=== PATIENT | male | born 1960 | race Caucasian/White ===

== ENCOUNTER 2020-05-28 11:24 | Inpatient (IN) ==
--- NOTE | 2020-05-28 11:56 | ERNOTE ---
Medical Problem HPI - Narrative Date of Service: 05/28/20 - General Chief Complaint: General Assessment Time Seen by Provider: 05/28/20 11:27 Source: patient Exam Limitations: no limitations - Immun/Allergies/Home Medications Immunizations: IMMUNIZATION HX Immunizations Up to Date Yes History of Influenza Vaccine No Hx Pneumococcal Vaccination No Allergies/Adverse Reactions: Allergies No Known Allergies Allergy (Verified 05/28/20 11:34) Home Medications: HOME MEDICATIONS pantoprazole 40 mg tablet,delayed release 40 mg PO DAILY #30 tab 05/27/20 [Last Taken Unknown] - Pain Score Pain Score #1 Pain Score: 0 - History of Present History Narrative: The patient is a 60 year old male who presents for abdominal distention which has been present for 10 days. There are associated symptoms of jaundice. The patient denies pain. There are no alleviating factors. There a re no aggravating factors. Previous treatments have included: none. The past medical history includes: alcohol dependence, GERD and hiatal hernia. The social history is positive for alcohol dependence and negative for tobacco use. The patient has had no known ill contacts. Patient states he noticed increased abdominal distention 10 days ago and his mother recognized that his skin appeared yellow. Patient states he has been having normal bowel movements without blood contained. Denies nausea, vomiting or pain to abdomen. Patient denies alcohol use. Patient states he was previously drinking 12-15 beers daily until 3 weeks ago. Review of Systems - Review of Systems Constitutional: Present: no symptoms reported. Absent: fever, chills, fatigue EYE: Present: no symptoms reported ENT: Present: no symptoms reported. Absent: ear pain, nasal drainage, sore throat Respiratory: Present: no symptoms reported. Absent: shortness of breath, cough Cardiology: Present: no symptoms reported. Absent: chest pain Gastrointestinal/Abdominal: Present: other - abdominal distention. Absent: nausea, vomiting, diarrhea, eating less, drinking less Genitourinary: Present: no symptoms reported. Absent: dysuria, decreased urinary output Musculoskeletal: Present: no symptoms reported. Absent: back pain Skin: Present: change in color. Absent: rash Neurological: Present: no symptoms reported. Absent: dizziness/light-headedness All Other Systems: All systems neg except as marked Medical History (Last Reviewed 05/28/20 @ 11:49 by TONY Raines) Major depression (Chronic) Alcohol dependence (Chronic) Depression Hiatal hernia Hypertension, essential, benign Insomnia due to mental disorder Intermittent explosive disorder Moderate episode of recurrent major depressive disorder Osteoarthrosis Arthritis Chronic pain due to trauma DDD (degenerative disc disease), lumbosacral Low back pain Midline low back pain with sciatica Clavicle fracture Fracture of metacarpal, closed Surgical History: Surgical History (Last Reviewed 05/28/20 @ 11:49 by TONY Raines) History of appendectomy History of inguinal hernia repair History of tonsillectomy Family History: Family History (Last Reviewed 05/28/20 @ 11:49 by TONY Raines) Father CAD (coronary artery disease) Brain cancer Mother Thyroid disease Breast cancer Sister Thyroid disease Social History: (Last Reviewed 05/28/20 @ 11:49 by TONY Raines) Social History: Marital status: Single household members: none current occupational status: unemployed Service: Yes Tobacco: Smoking Status: Never smoker Alcohol: alcohol intake: former Alcohol type: beer alcohol intake frequency: 3 or more drinks per day Substance Use: substance use type: does not use Dietary Habits: caffeine: No Physical Exam - Physical Exam General Appearance: Present: wd/wn, alert, mild distress Head Exam: Present: normal inspection, no evidence of injury Eye Exam: PERRL: bilateral, EOMI: bilateral, Scleral icterus: bilateral Ears, Nose, Throat: Present: normal ENT inspection, normal pharynx Neck: Present: normal inspection Respiratory: Present: no respiratory distress, normal breath sounds, no accessory muscle use, lungs clear Cardiovascular/Chest: Present: no murmur, tachycardia Gastrointestinal/Abdominal: Present: nontender, soft, abnormal bowel sounds - hypoactive, distended. Absent: guarding, mass Neurological Exam: Present: alert, oriented, normal mood/affect, no motor/sensory deficits Skin Exam: Present: warm/dry, jaundice Progress - Date and Time Seen: Date and Time: 05/28/20 14:45 Case was discussed with , does not feel that patient is surgical. Case was reviewed with , feels since new diagnosis along with abnormal labs and need for additional ascites testing. 05/28/20 14:50 [facility] consulted for transfer for higher level of care and hepatology. 05/28/20 15:00 Awaiting return call from [facility] ER for transfer. Discussed plan of care with patient and verbalized understanding. 05/28/20 15:06 Spoke with [facility], and feels that patient could be managed locally with consult for hepatology for management and then transfer admission when bed available. Will discuss this plan of care with for acceptance. 05/28/20 15:27 Discussed plan with and would like hepatology consult to be completed in ER to ensure plan of care available for admission at [facility] then will proceed once plan established. [facility] contacted to consult with hepatology. 05/28/20 15:55 Spoke with hepatology [facility], , will be available for consult. Recommending addition of iron studies, mag, phosphate, fluid restriction of 1500 mils per day, no diuretics, high-protein diet, DVT prophylaxis as well as paracentesis for fluid studies of protein, albumin, cell count and culture. This plan was discussed with Dr. Torres and agreed to admit patient and will follow-up with hepatology when results of testing are available. Additional testing was added to blood from ER and remain pending upon admission this was disclosed to Dr. Torres. Spoke with Dr. Oliveros and patient will be scheduled with Dr. Medina tomorrow for paracentesis for studies. Will place patient on compression stockings for DVT prophylaxis due to pending paracentesis plan. Reviewed UA results with Dr. Layne and instructed to withhold antibiotic treatment at this time until cultures and other specimens are available. - Results and Orders Patient's Lab Results:: I have reviewed the patient's lab results. Results and Orders: Laboratory Tests 05/28/20 05/28/20 05/28/20 12:20 12:20 12:20 WBC 10.1 RBC 3.65 L Hgb 13.0 L Hct 36.7 L Plt Count 139 L Neutrophils % 81.1 H INR (Anticoag Therapy) 1.97 H Plasma Sodium 117 L* Potassium 2.9 L Chloride 84 L Carbon Dioxide 23.6 L Anion Gap 12.3 BUN 9 Creatinine 0.99 Est GFR (Non-Af Amer) 82 Random Glucose 125 H Total Bilirubin 17.2 H Direct Bilirubin AST 194 H ALT 84 H Alkaline Phosphatase 121 Ammonia Total Protein 8.9 H Albumin 1.8 L Amylase 55 Lipase 218 05/28/20 05/28/20 12:20 12:20 WBC RBC Hgb Hct Plt Count Neutrophils % INR (Anticoag Therapy) Plasma Sodium Potassium Chloride Carbon Dioxide Anion Gap BUN Creatinine Est GFR (Non-Af Amer) Random Glucose Total Bilirubin Direct Bilirubin 11.7 H AST ALT Alkaline Phosphatase Ammonia Less than 17.0 Total Protein Albumin Amylase Lipase Laboratory Tests 05/28/20 14:17 Urine Color Brown Urine Appearance Slightly cloudy Urine pH 6.5 Ur Specific [place] 1.025 Urine Protein 30 H Urine Glucose (UA) 100 H Urine Ketones 5 Urine Blood 5 H Urine Nitrate Positive H Urine Bilirubin 6 H Urine Ictotest Positive H Prot Sulfosalicylic Acd 2+ H Urine Urobilinogen >=8.0 H Ur Leukocyte Esterase Negative Urine RBC None seen Urine WBC 5-10 H Ur Epithelial Cells None seen Amorphous Sediment Few - 1+ Urine Bacteria 1+ H - Vital Signs Patient's Vital Signs:: I have reviewed the patient's vital signs. Vital Signs: Vital Signs 05/28/20 11:28 Temperature 36.5 C Pulse Rate 113 H Respiratory Rate 16 Blood Pressure 141/98 H O2 Sat by Pulse Oximetry 98 - EKG EKG #1 EKG: NSR, other - PAC, no acute ischemic changes noted EKG read: Reviewed by me - CT/Ultrasound CT/Ultrasound Narrative: IMPRESSION: 1. FINDINGS CONSISTENT WITH HEPATIC CIRRHOSIS. NO HEPATIC MASSES. 2. ASSOCIATED MODERATE ASCITES. 3. ASSOCIATED MODERATE TO SEVERE SPLENOMEGALY. 4. THE GALLBLADDER IS DISTENDED WITH GALLBLADDER SLUDGE AND DEBRIS. NO EVIDENCE FOR ACUTE CHOLECYSTITIS HOWEVER. Electronically signed by Clayton Oliveros D.O.. - Progress/Reassessment Chief Complaint: General Assessment Departure Clinical Impression: Alcoholic hepatitis with ascites, Hyponatremia, Hypokalemia - Departure Disposition: Still a patient Condition: Fair
[2020-05-28 12:28] LABS: Hematocrit 36.7 % (42.0-52.0); Mean Cell Volume 100.5 fl (78-100); Mean Corpuscular Hemoglobin 35.6 pg (27-31); Mean Corpuscular Hgb Conc 35.4 g/dl (32-36); Mean Platelet Volume 10.4 fl (8-11.3); Neutrophil # 8.2 K/mm3 (1.3-6.0); Neutrophil % 81.1 % (42-75.0); Platelet Count 139 K/mm3 (150-450); Red Blood Count 3.65 M/mm3 (4.7-6.0); Red Cell Distribution Width 14.2 % (11.5-14.0); White Blood Count 10.1 K/mm3 (4.0-10.5)
[2020-05-28 12:40] LABS: Albumin * 1.8 gm/dl (3.4-5.0); Anion Gap 12.3 mmol/L (6.8-13.8); BUN/Creatinine Ratio 9.1 (9.0-21.6); Bilirubin, Total 17.2 mg/dL (0.0-1.1); Ca. Corrected For Albumin 9.9 mg/dL (8.4-10.2); Calcium * 8.5 mg/dL (7.9-10.9); Carbon Dioxide 23.6 mmol/L (24-32.6); Potassium 2.9 mmol/L (3.4-4.6); Total Protein 8.9 gm/dL (6.2-8.2)
[2020-05-28 13:09] LABS: INR 1.97 INR (0.92-1.08)
[2020-05-28] MEDS: NORMAL SALINE 1,000 ML IV PRN ×3 (13:19→17:43)
[2020-05-28 14:28] LABS: Urine Bilirubin 6 mg/dl (NEGATIVE); Urine Ketone 5 mg/dL (NEGATIVE); Urine Protein 30 mg/dL (NEGATIVE); Urine Specific Gravity 1.025 SP.GR. (1.005-1.030); Urine Urobilinogen >=8.0 EU/dl (NORMAL); Urine pH 6.5 pH (5.0-7.0)
[2020-05-28 14:44] LABS: Urine Appearance Slightly Cloudy (CLEAR); Urine Bacteria 1+; Urine Blood 5 /ul (NEGATIVE); Urine Color Brown; Urine Nitrite Positive (NEGATIVE); Urine RBC None Seen /hpf (0-5)
[2020-05-28 14:45] LABS: Urine Amorphous Sediment Few - 1+ (NONE-FEW)
[2020-05-28] MEDS ORDERED: POTASSIUM CHLORIDE IN WATER 100 ML IV ONE ×2 (14:59→17:06)
[2020-05-28] MEDS ORDERED: NORMAL SALINE 1,000 ML IV PRN (14:59)
[2020-05-28 16:07] LABS: Iron 110 mcg/dL (35-120); Transferrin Sat. (% Sat.) 96 % (15-55)
[2020-05-28 16:37] LABS: Cocaine Ur Negative (NEGATIVE); Urine Barbiturate Negative (NEGATIVE); Urine Benzodiazepines Negative (NEGATIVE); Urine Opiates Negative (NEGATIVE); Urine PCP Negative (NEGATIVE); Urine THC Negative (NEGATIVE)
[2020-05-28 16:42] LABS: Magnesium 1.6 mg/dL (1.2-2.8); Phosphorus 3.6 mg/dL (2.2-4.2)
[2020-05-28 16:54] LABS: Ferritin 1728 ng/mL (26-388)
[2020-05-28 18:33] LABS: Anion Gap 8.6 mmol/L (6.8-13.8); BUN/Creatinine Ratio 8.9 (9.0-21.6); Calcium * 8.3 mg/dL (7.9-10.9); Carbon Dioxide 28.6 mmol/L (24-32.6); Estimated Creat Clear 113.2; Potassium 3.2 mmol/L (3.4-4.6)
--- NOTE | 2020-05-28 18:50 | HP ---
Chief Complaint - Chief Complaint Date of Service: 05/28/20 Time of Service: 18:25 Chief Complaint: Abdominal swelling History of Present Illness: This is a 60 y/o man who noticed progressively increasing abdominal swelling for about 3 weeks. It is uncomfortable, but not painful. He has never had it before. There have been no fever, chills or sweats. His mother noticed that his skin was yellow, and he noticed that his urine was dark. He came to our ER today where among other things, he was found to have a bilirubin of 17.2, a low sodium, a low potassium and mild anemia. His physical exam showed jaundice and moderate ascites. His breath is unpleasant, as one might expect with liver failure. He is in no acute distress. His vitals are unremarkable. He normally takes pantoprazole, without which he develops anorexia and upper abdominal discomfort. He has taken this for a long time. In the ER, CT of the abdomen showed the ascites, plus cirrhosis of the liver and a large spleen. He doesn't have much of an appetite tonight. He told me until 2 weeks ago, he was drinking 12-15 beers daily, but the underlying sense I have of it is that he has been drinking somewhat more. In the more distant past, his beer drinking was more vigourous. He has had no alcohol for three weeks. His MELD score today is 31. Medical History (Last Reviewed 05/28/20 @ 18:33 by Sergei Liang MD) Major depression (Chronic) Alcohol dependence (Chronic) Depression Hiatal hernia Hypertension, essential, benign Insomnia due to mental disorder Intermittent explosive disorder Moderate episode of recurrent major depressive disorder Osteoarthrosis Arthritis Chronic pain due to trauma DDD (degenerative disc disease), lumbosacral Low back pain Midline low back pain with sciatica Clavicle fracture Fracture of metacarpal, closed Surgical History: Surgical History (Last Reviewed 05/28/20 @ 18:33 by Sergei Liang MD) History of appendectomy History of inguinal hernia repair History of tonsillectomy Family History: Family History (Last Reviewed 05/28/20 @ 18:33 by Sergei Liang MD) Father Brain cancer CAD (coronary artery disease) Mother Breast cancer Thyroid disease Sister Thyroid disease Social History: (Last Reviewed 05/28/20 @ 18:34 by Sergei Liang MD) Social History: Marital status: Single household members: none current occupational status: unemployed Service: Yes Tobacco: Smoking Status: Never smoker Alcohol: alcohol intake: former Alcohol type: beer alcohol intake frequency: 3 or more drinks per day Substance Use: substance use type: does not use Dietary Habits: caffeine: No Review Of Systems (GEN) - Review of Systems Generalized/Overall Review: Present: Malaise, Fatigue EENTM: Present: No Symptoms Reported Respiratory: Present: No Symptoms Reported Cardiac: Present: No Symptoms Reported Abdominal: Present: Other - distension and discomfort. Absent: Nausea, Vomiting, Constipation, Diarrhea Genitourinary: Present: No Symptoms Reported, Other - dark urine Musculoskeletal: Present: No Symptoms Reported Neurological: Present: Other - insomnia. Absent: Tremors Skin: Present: Change in Color. Absent: Bruising Endocrine: Present: Intolerance to Cold, Intolerance to Heat Misc: All systems neg except as marked Immunizations: IMMUNIZATION HX Immunizations Up to Date Yes History of Influenza Vaccine No Hx Pneumococcal Vaccination No Allergies/Adverse Reactions: Allergies Allergy/AdvReac Type Severity Reaction Status Date / Time No Known Allergies Allergy Verified 05/28/20 11:34 Home Medications: HOME MEDICATIONS pantoprazole 40 mg tablet,delayed release 40 mg PO DAILY #30 tab 05/27/20 [Last Taken Unknown] Exam - Exam Vital Signs: Vital Signs - Last Taken Temp 36.7 C 05/28/20 16:53 Pulse 86 05/28/20 16:53 Resp 10 L 05/28/20 16:53 BP 144/100 H 05/28/20 16:53 Pulse Ox 99 05/28/20 16:53 Constitutional: Present: Alert, Oriented x3, Cooperative, Well developed, No distress, Looks Older than stated age ENT Exam: Present: normal ENT inspection, hearing grossly normal Eye Exam: bilateral eye: normal inspection, PERRL, EOMI, scleral icterus Neck: Present: normal inspection. Absent: lymphadenopathy (R), lymphadenopathy (L), thyromegaly Back Exam: Present: normal inspection Breasts: Present: Other - male Respiratory: Present: lungs clear, no respiratory distress Cardiovascular/Chest: Present: regular rate, rhythm, no gallop, no JVD, no mur mur, edema - bilateral lower extremities, mild Peripheral Pulses: carotid (R): 1+, carotid (L): 1+ Abdomen: Present: Normal bowel sounds, soft, nontender, no masses, other - large spleen, distended /Rectal: Present: Exam deferred Extremity: Present: normal range of motion, non-tender, normal capillary refill Skin Exam: Present: no cyanosis, cool/dry, jaundice Lymphatic: Present: no adenopathy Neurologic: Present: normal mood/affect, oriented x 3. Absent: abnormal gait Appearance: Present: appropriate appearance, appropriate insight, neat Eye contact: Present: cooperative, good eye contact, normal speech Thoughts: Present: normal thought pattern Diagnostic Studies: Abnormal Lab Results 05/28/20 05/28/20 05/28/20 Range/Units 12:20 12:20 12:20 RBC 3.65 L (4.7-6.0) M/mm3 Hgb 13.0 L (13.5-18.0) gm/dL Hct 36.7 L (42.0-52.0) % MCV 100.5 H (78-100) fl MCH 35.6 H (27-31) pg RDW 14.2 H (11.5-14.0) % Plt Count 139 L (150-450) K/mm3 Immature Gran # (Auto) 0.04 H (0.000-0.0310) K/mm3 Neutrophils % 81.1 H (42-75.0) % Lymphocytes % 9.5 L (20-51) % Neutrophils # 8.2 H (1.3-6.0) K/mm3 Lymphocytes # 0.95 L (1.5-3.5) k/mm3 PT 19.0 H (9.1-10.7) Seconds INR (Anticoag Therapy) 1.97 H (0.92-1.08) INR PTT (Aries) 38.0 H (24-32) Seconds Sodium 117 L* D (132-142) mmol/L Plasma Sodium 117 L* (130-142) mmol/L Potassium 2.9 L (3.4-4.6) mmol/L Chloride 84 L (97-106) mmol/L Carbon Dioxide 23.6 L (24-32.6) mmol/L Random Glucose 125 H (70-110) mg/dL TIBC (260-445) mcg/dL Transferrin % Sat (15-55) % Ferritin (26-388) ng/mL Total Bilirubin 17.2 H (0.0-1.1) mg/dL Direct Bilirubin (0.0-0.3) mg/dL AST 194 H (0-48) U/L ALT 84 H (19-67) U/L Total Protein 8.9 H (6.2-8.2) gm/dL Albumin 1.8 L (3.4-5.0) gm/dl Urine Protein (NEGATIVE) mg/dL Urine Glucose (UA) (NEGATIVE) mg/dL Urine Blood (NEGATIVE) /ul Urine Nitrate (NEGATIVE) Urine Bilirubin (NEGATIVE) mg/dl Urine Ictotest (NEGATIVE) Prot Sulfosalicylic Acd (0) mg/dL Urine Urobilinogen (NORMAL) EU/dl Urine WBC (0-5) /hpf Urine Bacteria (NONE) 05/28/20 05/28/20 05/28/20 Range/Units 12:20 12:20 12:20 RBC (4.7-6.0) M/mm3 Hgb (13.5-18.0) gm/dL Hct (42.0-52.0) % MCV (78-100) fl MCH (27-31) pg RDW (11.5-14.0) % Plt Count (150-450) K/mm3 Immature Gran # (Auto) (0.000-0.0310) K/mm3 Neutrophils % (42-75.0) % Lymphocytes % (20-51) % Neutrophils # (1.3-6.0) K/mm3 Lymphocytes # (1.5-3.5) k/mm3 PT (9.1-10.7) Seconds INR (Anticoag Therapy) (0.92-1.08) INR PTT (Aries) (24-32) Seconds Sodium (132-142) mmol/L Plasma Sodium (130-142) mmol/L Potassium (3.4-4.6) mmol/L Chloride (97-106) mmol/L Carbon Dioxide (24-32.6) mmol/L Random Glucose (70-110) mg/dL TIBC 114 L (260-445) mcg/dL Transferrin % Sat 96 H (15-55) % Ferritin 1728 H (26-388) ng/mL Total Bilirubin (0.0-1.1) mg/dL Direct Bilirubin 11.7 H (0.0-0.3) mg/dL AST (0-48) U/L ALT (19-67) U/L Total Protein (6.2-8.2) gm/dL Albumin (3.4-5.0) gm/dl Urine Protein (NEGATIVE) mg/dL Urine Glucose (UA) (NEGATIVE) mg/dL Urine Blood (NEGATIVE) /ul Urine Nitrate (NEGATIVE) Urine Bilirubin (NEGATIVE) mg/dl Urine Ictotest (NEGATIVE) Prot Sulfosalicylic Acd (0) mg/dL Urine Urobilinogen (NORMAL) EU/dl Urine WBC (0-5) /hpf Urine Bacteria (NONE) 05/28/20 Range/Units 14:17 RBC (4.7-6.0) M/mm3 Hgb (13.5-18.0) gm/dL Hct (42.0-52.0) % MCV (78-100) fl MCH (27-31) pg RDW (11.5-14.0) % Plt Count (150-450) K/mm3 Immature Gran # (Auto) (0.000-0.0310) K/mm3 Neutrophils % (42-75.0) % Lymphocytes % (20-51) % Neutrophils # (1.3-6.0) K/mm3 Lymphocytes # (1.5-3.5) k/mm3 PT (9.1-10.7) Seconds INR (Anticoag Therapy) (0.92-1.08) INR PTT ([place]) (24-32) Seconds Sodium (132-142) mmol/L Plasma Sodium (130-142) mmol/L Potassium (3.4-4.6) mmol/L Chloride (97-106) mmol/L Carbon Dioxide (24-32.6) mmol/L Random Glucose (70-110) mg/dL TIBC (260-445) mcg/dL Transferrin % Sat (15-55) % Ferritin (26-388) ng/mL Total Bilirubin (0.0-1.1) mg/dL Direct Bilirubin (0.0-0.3) mg/dL AST (0-48) U/L ALT (19-67) U/L Total Protein (6.2-8.2) gm/dL Albumin (3.4-5.0) gm/dl Urine Protein 30 H (NEGATIVE) mg/dL Urine Glucose (UA) 100 H (NEGATIVE) mg/dL Urine Blood 5 H (NEGATIVE) /ul Urine Nitrate Positive H (NEGATIVE) Urine Bilirubin 6 H (NEGATIVE) mg/dl Urine Ictotest Positive H (NEGATIVE) Prot Sulfosalicylic Acd 2+ H (0) mg/dL Urine Urobilinogen >=8.0 H (NORMAL) EU/dl Urine WBC 5-10 H (0-5) /hpf Urine Bacteria 1+ H (NONE) Laboratory Results WBC 10.1 K/mm3 (4.0-10.5) 05/28/20 12:20 RBC 3.65 M/mm3 (4.7-6.0) L 05/28/20 12:20 Hgb 13.0 gm/dL (13.5-18.0) L 05/28/20 12:20 Hct 36.7 % (42.0-52.0) L 05/28/20 12:20 MCV 100.5 fl (78-100) H 05/28/20 12:20 MCH 35.6 pg (27-31) H 05/28/20 12:20 MCHC 35.4 g/dl (32-36) 05/28/20 12:20 RDW 14.2 % (11.5-14.0) H 05/28/20 12:20 Plt Count 139 K/mm3 (150-450) L 05/28/20 12:20 MPV 10.4 fl (8-11.3) 05/28/20 12:20 Immature Gran % (Auto) 0.40 % (0.001-0.429) 05/28/20 12: Immature Gran # (Auto) 0.04 K/mm3 (0.000-0.0310) H 05/28/20 12:20 Neutrophils % 81.1 % (42-75.0) H 05/28/20 12:20 Lymphocytes % 9.5 % (20-51) L 05/28/20 12:20 Monocytes % 7.8 % (0.0-9) 05/28/20 12:20 Eosinophils % 0.8 % (0.0-3.0) 05/28/20 12:20 Basophils % 0.4 % (0.0-1.0) 05/28/20 12:20 Nucleated RBC % 0.0 k/mm3 (0-1) 05/28/20 12:20 Neutrophils # 8.2 K/mm3 (1.3-6.0) H 05/28/20 12:20 Lymphocytes # 0.95 k/mm3 (1.5-3.5) L 05/28/20 12:20 Monocytes # 0.8 k/mm3 (0.0-1.0) 05/28/20 12:20 Eosinophils # 0.1 k/mm3 (0.0-0.7) 05/28/20 12:20 Absolute Basophils 0.0 k/mm3 (0.0-0.1) 05/28/20 12:20 PT 19.0 Seconds (9.1-10.7) H 05/28/20 12:20 INR (Anticoag Therapy) 1.97 INR (0.92-1.08) H 05/28/20 12:20 PTT (Aries) 38.0 Seconds (24-32) H 05/28/20 12:20 Sodium 117 mmol/L (132-142) L* D 05/28/20 12:20 Plasma Sodium 117 mmol/L (130-142) L* 05/28/20 12:20 Potassium 2.9 mmol/L (3.4-4.6) L 05/28/20 12:20 Chloride 84 mmol/L (97-106) L 05/28/20 12:20 Carbon Dioxide 23.6 mmol/L (24-32.6) L 05/28/20 12:20 Anion Gap 12.3 mmol/L (6.8-13.8) 05/28/20 12:20 BUN 9 mg/dL (6-23) 05/28/20 12:20 Creatinine 0.99 mg/dL (0.4-1.4) 05/28/20 12:20 Est GFR (Non-Af Amer) 82 mL/min (60-130) 05/28/20 12:20 BUN/Creatinine Ratio 9.1 (9.0-21.6) 05/28/20 12:20 Random Glucose 125 mg/dL (70-110) H 05/28/20 12:20 Calcium 8.5 mg/dL (7.9-10.9) 05/28/20 12:20 Calcium Adj for Albumin 9.9 mg/dL (8.4-10.2) 05/28/20 12:20 Phosphorus 3.6 mg/dL (2.2-4.2) 05/28/20 12:20 Magnesium 1.6 mg/dL (1.2-2.8) 05/28/20 12:20 Iron 110 mcg/dL (35-120) 05/28/20 12:20 TIBC 114 mcg/dL (260-445) L 05/28/20 12:20 Transferrin % Sat 96 % (15-55) H 05/28/20 12:20 Ferritin 1728 ng/mL (26-388) H 05/28/20 12:20 Total Bilirubin 17.2 mg/dL (0.0-1.1) H 05/28/20 12:20 Direct Bilirubin 11.7 mg/dL (0.0-0.3) H 05/28/20 12:20 AST 194 U/L (0-48) H 05/28/20 12:20 ALT 84 U/L (19-67) H 05/28/20 12:20 Alkaline Phosphatase 121 U/L (50-170) 05/28/20 12:20 Ammonia Less than 17.0 mcmol/L (11-35) 05/28/20 12:20 Total Protein 8.9 gm/dL (6.2-8.2) H 05/28/20 12:20 Albumin 1.8 gm/dl (3.4-5.0) L 05/28/20 12:20 Amylase 55 U/L (25-115) 05/28/20 12:20 Lipase 218 U/L (73-393) 05/28/20 12:20 Urine Color Brown 05/28/20 14:17 Urine Appearance Slightly cloudy (CLEAR) 05/28/20 14:17 Urine pH 6.5 pH (5.0-7.0) 05/28/20 14:17 Ur Specific [place] 1.025 SP.GR. (1.005-1.030) 05/28/20 14:17 Urine Protein 30 mg/dL (NEGATIVE) H 05/28/20 14:17 Urine Glucose (UA) 100 mg/dL (NEGATIVE) H 05/28/20 14:17 Urine Ketones 5 mg/dL (NEGATIVE) 05/28/20 14:17 Urine Blood 5 /ul (NEGATIVE) H 05/28/20 14:17 Urine Nitrate Positive (NEGATIVE) H 05/28/20 14:17 Urine Bilirubin 6 mg/dl (NEGATIVE) H 05/28/20 14:17 Urine Ictotest Positive (NEGATIVE) H 05/28/20 14:17 Prot Sulfosalicylic Acd 2+ mg/dL (0) H 05/28/20 14:17 Urine Urobilinogen >=8.0 EU/dl (NORMAL) H 05/28/20 14:17 Ur Leukocyte Esterase Negative /ul (NEGATIVE) 05/28/20 14:17 Urine RBC None seen /hpf (0-5) 05/28/20 14:17 Urine WBC 5-10 /hpf (0-5) H 05/28/20 14:17 Ur Epithelial Cells None seen /hpf (0-5) 05/28/20 14:17 Amorphous Sediment Few - 1+ (NONE-FEW) 05/28/20 14:17 Urine Bacteria 1+ (NONE) H 05/28/20 14:17 Urine Culture Comments Culture to follow 05/28/20 14:17 Urine Opiates Screen Negative (NEGATIVE) 05/28/20 14:17 Barbiturate Screen Negative (NEGATIVE) 05/28/20 14:17 Ur Phencyclidine Scrn Negative (NEGATIVE) 05/28/20 14:17 Urine Amphetamine Negative (NEGATIVE) 05/28/20 14:17 U Benzodiazepines Scrn Negative (NEGATIVE) 05/28/20 14:17 Urine Cocaine Screen Negative (NEGATIVE) 05/28/20 14:17 Urine Marijuana (THC) Negative (NEGATIVE) 05/28/20 14:17 Ethyl Alcohol Less than 3.0 mg/dL (0.0-10.0) 05/28/20 12:20 Hgb is borderline low. Macrocytosis. Minimally low platelet count. Somewhat elevated INR. Sodium and potassium both low. Serum albumin low. Bilirubin elevated. Liver enzymes slightly elevated, AST being greater than ALT. Urine is most significant for dark color. The ER provider spoke with the [facility] liver person this afternoon by phone about possible transfer. They were full at the time and couldn't accept him. They DID provide treatment recommendations which we will follow. (Then, [facility] the [facility] this note[facility] to say that things had opened up and they could accept him tomorrow)/ We were planning on paracentesis tomorrow, but that will now most likely be done in [place]. Assessment/Plan - Assessment/Plan (1) Alcoholic cirrhosis of liver with ascites Assessment: Has now begun to decompensate. MELD score at time of admission is 31. We will provide good nutrition, monitor, and strongly advise strict alcohol avoidance. We will most likely transfer him to the [facility] tomorrow. Problem: Chronic (2) Alcohol dependence Assessment: Quit alcohol three weeks ago. He has used for decades. Says he will never use again. Problem: Chronic Qualifiers: (3) Splenomegaly Problem: Chronic (4) Elevated INR Problem: Chronic (5) Jaundice Problem: Chronic (6) Hypoalbuminemia Problem: Chronic (7) Hyponatremia Assessment: we will restrict fluids. also in the management plan for his ascites. we will give low dose NS in his IV and monitor electrolytes. Problem: Acute (8) Hypokalemia Assessment: We will continue with IV potassium for now and monitor. Problem: Acute
[2020-05-29 06:34] LABS: Hematocrit 30.6 % (42.0-52.0); Hemoglobin 10.9 gm/dL (13.5-18.0); Mean Cell Volume 100.7 fl (78-100); Mean Corpuscular Hemoglobin 35.9 pg (27-31); Mean Corpuscular Hgb Conc 35.6 g/dl (32-36); Mean Platelet Volume 9.5 fl (8-11.3); Neutrophil # 3.9 K/mm3 (1.3-6.0); Neutrophil % 71.2 % (42-75.0); Platelet Count 103 K/mm3 (150-450); Red Blood Count 3.04 M/mm3 (4.7-6.0); White Blood Count 5.4 K/mm3 (4.0-10.5)
[2020-05-29 06:51] LABS: Albumin * 1.5 gm/dl (3.4-5.0); BUN/Creatinine Ratio 9.4 (9.0-21.6); Ca. Corrected For Albumin 9.7 mg/dL (8.4-10.2); Carbon Dioxide 27.8 mmol/L (24-32.6); Potassium 2.8 mmol/L (3.4-4.6); Total Protein 7.3 gm/dL (6.2-8.2)
[2020-05-29] MEDS: PANTOPRAZOLE SODIUM 40 MG TABLET.EC PO SCH (07:15)
--- NOTE | 2020-05-29 07:31 | DS ---
Transfer Discharge Summary - Diagnosis(s)/Problems (1) Alcoholic cirrhosis of liver with ascites Problem: Chronic (2) Alcohol dependence Problem: Chronic (3) Splenomegaly Problem: Chronic (4) Elevated INR Problem: Chronic (5) Jaundice Problem: Chronic (6) Hypoalbuminemia Problem: Chronic (7) Hyponatremia Problem: Acute (8) Hypokalemia Problem: Resolved (9) Thrombocytopenia Problem: Acute - Course Description of Stay: This is a 60 y/o man who had noticed progressively increasing abdominal swelling for about 3 weeks. He abdominal discomfort has responded well to oxycodone. LLQ bothers him the most, improved by rolling onto his right side. We have avoided acetaminophen and NSAIDs because of his cirrohsis. There have still been no fever, chills or sweats. His urine remains dark. His musculoskeletal cramps have improved. He came to our ER 2 days ago where among other things, he was found to have a bilirubin of 17.2, a low sodium, a low potassium, low albumin, somewhat elevated INR and mild anemia. His MELD score was 31. His physical exam still shows jaundice and moderate ascites. His breath is unpleasant. He is in no acute distress. His vitals are stable. His sodium, bilirubin and hgb are stable. His platelet count is decreasing, related to his cirrhosis. we will continue to monitor. His potassium is normal. we will decrease his oral dose. His INR is a little better, but not low enough today to do paracentesis. We will give Vit K again today and recheck tomorrow. His sodium remains low in spite of fluid restriction, so we will add low dose 3% NaCl and monitor. In the ER, CT of the abdomen showed ascites, plus cirrhosis of the liver and a large spleen. His appetite has improved, but still not great [facility] still has no bed for him, so we arranged transfer to Dr. Kobe Phillips in [place]. Consultation Done:: Phone consult [facility] when he was in ER Procedures Performed: none - Results and Findings Results and Findings: Laboratory Results - last 24 hr 05/28/20 05/28/20 05/28/20 12:20 12:20 12:20 WBC 10.1 RBC 3.65 L Hgb 13.0 L Hct 36.7 L MCV 100.5 H MCH 35.6 H MCHC 35.4 RDW 14.2 H Plt Count 139 L MPV 10.4 Immature Gran % (Auto) 0.40 Immature Gran # (Auto) 0.04 H Neutrophils % 81.1 H Lymphocytes % 9.5 L Monocytes % 7.8 Eosinophils % 0.8 Basophils % 0.4 Nucleated RBC % 0.0 Neutrophils # 8.2 H Lymphocytes # 0.95 L Monocytes # 0.8 Eosinophils # 0.1 Absolute Basophils 0.0 PT 19.0 H INR (Anticoag Therapy) 1.97 H PTT ([place]) 38.0 H Sodium 117 L* D Plasma Sodium 117 L* Potassium 2.9 L Chloride 84 L Carbon Dioxide 23.6 L Anion Gap 12.3 BUN 9 Creatinine 0.99 Est GFR (Non-Af Amer) 82 BUN/Creatinine Ratio 9.1 Random Glucose 125 H Calcium 8.5 Calcium Adj for Albumin 9.9 Phosphorus Magnesium Iron TIBC Transferrin % Sat Ferritin Total Bilirubin 17.2 H Direct Bilirubin AST 194 H ALT 84 H Alkaline Phosphatase 121 Ammonia Total Protein 8.9 H Albumin 1.8 L Amylase 55 Lipase 218 Urine Color Urine Appearance Urine pH Ur Specific [place] Urine Protein Urine Glucose (UA) Urine Ketones Urine Blood Urine Nitrate Urine Bilirubin Urine Ictotest Prot Sulfosalicylic Acd Urine Urobilinogen Ur Leukocyte Esterase Urine RBC Urine WBC Ur Epithelial Cells Amorphous Sediment Urine Bacteria Urine Culture Comments Urine Opiates Screen Barbiturate Screen Ur Phencyclidine Scrn Urine Amphetamine U Benzodiazepines Scrn Urine Cocaine Screen Urine Marijuana (THC) Ethyl Alcohol 05/28/20 05/28/20 05/28/20 12:20 12:20 12:20 WBC RBC Hgb Hct MCV MCH MCHC RDW Plt Count MPV Immature Gran % (Auto) Immature Gran # (Auto) Neutrophils % Lymphocytes % Monocytes % Eosinophils % Basophils % Nucleated RBC % Neutrophils # Lymphocytes # Monocytes # Eosinophils # Absolute Basophils PT INR (Anticoag Therapy) PTT ([place]) Sodium Plasma Sodium Potassium Chloride Carbon Dioxide Anion Gap BUN Creatinine Est GFR (Non-Af Amer) BUN/Creatinine Ratio Random Glucose Calcium Calcium Adj for Albumin Phosphorus 3.6 Magnesium 1.6 Iron TIBC Transferrin % Sat Ferritin 1728 H Total Bilirubin Direct Bilirubin 11.7 H AST ALT Alkaline Phosphatase Ammonia Less than 17.0 Total Protein Albumin Amylase Lipase Urine Color Urine Appearance Urine pH Ur Specific [place] Urine Protein Urine Glucose (UA) Urine Ketones Urine Blood Urine Nitrate Urine Bilirubin Urine Ictotest Prot Sulfosalicylic Acd Urine Urobilinogen Ur Leukocyte Esterase Urine RBC Urine WBC Ur Epithelial Cells Amorphous Sediment Urine Bacteria Urine Culture Comments Urine Opiates Screen Barbiturate Screen Ur Phencyclidine Scrn Urine Amphetamine U Benzodiazepines Scrn Urine Cocaine Screen Urine Marijuana (THC) Ethyl Alcohol Less than 3.0 05/28/20 05/28/20 05/28/20 12:20 14:17 14:17 WBC RBC Hgb Hct MCV MCH MCHC RDW Plt Count MPV Immature Gran % (Auto) Immature Gran # (Auto) Neutrophils % Lymphocytes % Monocytes % Eosinophils % Basophils % Nucleated RBC % Neutrophils # Lymphocytes # Monocytes # Eosinophils # Absolute Basophils PT INR (Anticoag Therapy) PTT ([place]) Sodium Plasma Sodium Potassium Chloride Carbon Dioxide Anion Gap BUN Creatinine Est GFR (Non-Af Amer) BUN/Creatinine Ratio Random Glucose Calcium Calcium Adj for Albumin Phosphorus Magnesium Iron 110 TIBC 114 L Transferrin % Sat 96 H Ferritin Total Bilirubin Direct Bilirubin AST ALT Alkaline Phosphatase Ammonia Total Protein Albumin Amylase Lipase Urine Color Brown Urine Appearance Slightly cloudy Urine pH 6.5 Ur Specific [place] 1.025 Urine Protein 30 H Urine Glucose (UA) 100 H Urine Ketones 5 Urine Blood 5 H Urine Nitrate Positive H Urine Bilirubin 6 H Urine Ictotest Positive H Prot Sulfosalicylic Acd 2+ H Urine Urobilinogen >=8.0 H Ur Leukocyte Esterase Negative Urine RBC None seen Urine WBC 5-10 H Ur Epithelial Cells None seen Amorphous Sediment Few - 1+ Urine Bacteria 1+ H Urine Culture Comments Culture to follow Urine Opiates Screen Negative Barbiturate Screen Negative Ur Phencyclidine Scrn Negative Urine Amphetamine Negative U Benzodiazepines Scrn Negative Urine Cocaine Screen Negative Urine Marijuana (THC) Negative Ethyl Alcohol 05/28/20 05/29/20 05/29/20 18:20 06:28 06:28 WBC 5.4 D RBC 3.04 L Hgb 10.9 L Hct 30.6 L MCV 100.7 H MCH 35.9 H MCHC 35.6 RDW 14.0 Plt Count 103 L MPV 9.5 Immature Gran % (Auto) 0.40 Immature Gran # (Auto) 0.02 Neutrophils % 71.2 Lymphocytes % 13.6 L Monocytes % 11.4 H Eosinophils % 2.8 Basophils % 0.6 Nucleated RBC % 0.0 Neutrophils # 3.9 Lymphocytes # 0.74 L Monocytes # 0.6 Eosinophils # 0.2 Absolute Basophils 0.0 PT INR (Anticoag Therapy) PTT ([place]) Sodium 120 L 122 L Plasma Sodium 120 L 122 L Potassium 3.2 L 2.8 L Chloride 86 L 87 L Carbon Dioxide 28.6 27.8 Anion Gap 8.6 10.0 BUN 9 8 Creatinine 1.01 0.85 Est GFR (Non-Af Amer) 80 98 D BUN/Creatinine Ratio 8.9 L 9.4 Random Glucose 127 H 94 Calcium 8.3 8.0 Calcium Adj for Albumin 9.7 Phosphorus Magnesium Iron TIBC Transferrin % Sat Ferritin Total Bilirubin 14.0 H Direct Bilirubin AST 148 H ALT 55 Alkaline Phosphatase 96 Ammonia Total Protein 7.3 Albumin 1.5 L Amylase Lipase Urine Color Urine Appearance Urine pH Ur Specific [place] Urine Protein Urine Glucose (UA) Urine Ketones Urine Blood Urine Nitrate Urine Bilirubin Urine Ictotest Prot Sulfosalicylic Acd Urine Urobilinogen Ur Leukocyte Esterase Urine RBC Urine WBC Ur Epithelial Cells Amorphous Sediment Urine Bacteria Urine Culture Comments Urine Opiates Screen Barbiturate Screen Ur Phencyclidine Scrn Urine Amphetamine U Benzodiazepines Scrn Urine Cocaine Screen Urine Marijuana (THC) Ethyl Alcohol - Medications Medications: Active Medications Sodium Chloride (Sodium Chloride 0.9%) 1,000 mls @ 20 mls/hr IV .Q24H PRN PRN Reason: HYDRATION Stop: 06/27/20 17:06 Last Admin: 05/28/20 17:43 Dose: 20 mls/hr Documented by: Pantoprazole Sodium (Protonix) 40 mg PO DAILY@0700 LISBETH Stop: 06/28/20 07:01 Last Admin: 05/29/20 07:15 Dose: 40 mg Documented by: Discontinued Medications Sodium Chloride (Sodium Chloride 0.9%) 1,000 mls @ 999 mls/hr IV .Q1H1M PRN PRN Reason: HYDRATION Stop: 06/27/20 13:12 Last Infusion: 05/28/20 16:53 Dose: Infused Documented by: Potassium Chloride/Water (Kcl 10 Meq/100 Ml Piggyback) 100 mls @ 100 mls/hr IV ONCE ONE Stop: 05/28/20 15:58 Last Infusion: 05/28/20 16:12 Dose: Infused Documented by: Potassium Chloride/Water (Kcl 10 Meq/100 Ml Piggyback) 100 mls @ 100 mls/hr IV TID ONE Stop: 09/15/20 18:05 Last Infusion: 05/28/20 18:44 Dose: Infused Documented by: - Disposition Disposition: Short Term Hospital Inpatient Condition: Fair Discharge Date: 05/30/20 Discharge Time: 09:28
[2020-05-29 09:52] LABS: INR 1.97 INR (0.92-1.08)
[2020-05-29] MEDS: POTASSIUM CHLORIDE 20 MEQ TABLET.SA PO SCH ×2 (10:56→20:45)
--- NOTE | 2020-05-29 13:12 | PN ---
Subjective - Date and Time Seen Date: 05/29/20 Time: 07:00 Subjective Narrative: This is a 60 y/o man who noticed progressively increasing abdominal swelling for about 3 weeks. He remains uncomfortable, although one day last week he had brief sharp LLQ abdominal pain, resolved by rolling onto his right side. There have been no fever, chills or sweats. His mother noticed that his skin was yellow, and he noticed that his urine was dark. For a week or two he has had cramps in his hands and feet. He came to our ER yesterday where among other things, he was found to have a bilirubin of 17.2, a low sodium, a low potassium, low albumin, somewhat elevated INR and mild anemia. His physical exam still shows jaundice and moderate ascites. His breath is unpleasant. He is in no acute distress. His vitals are stable. His sodium is better, his potassium mildly low, but stable, and his bilirubin is lower. We will start oral potassium now and for the immediate time being continue his low dose IV saline. In the ER, CT of the abdomen showed ascites, plus cirrhosis of the liver and a large spleen. He doesn't have much of an appetite tonight. His appetite is poor, but better than yesterday. His MELD score yesterday was 31. Yesterday we had planned to transfer him to the [facility], but they were full and couldn't accept him. He was medically stable. We did have a phone consult with [facility], who provided some initial treatment recommendations, which we have followed. [facility] and that [facility] could accept him tomorrow, but just now they called again to say they were full. They thought they could probably receive him in a day or two. We will give one dose of Vit K and check his INR tomorrow to see if it is low enough for the paracentesis. Objective - Review of Systems Generalized/Overall Review: Reports: Fatigue EENTM: Reports: No Symptoms Reported Respiratory: Reports: No Symptoms Reported Cardiac: Reports: No Symptoms Reported Abdominal: Reports: Other - fullness and swelling and bloating Genitourinary Symptoms: Reports: No Symptoms Reported Musculoskeletal Complaints: Reports: Other - cramps hands and feet Neurological: Reports: No Symptoms Reported Skin: Reports: Change in Color Endocrine: Reports: No Symptoms Reported Misc: All systems neg except as marked - Vitals Vitals: Last Vital Signs Temp 36.8 C 05/29/20 10:00 Pulse 70 05/29/20 10:00 Resp 16 05/29/20 10:00 BP 99/67 05/29/20 10:00 Pulse Ox 96 05/29/20 10:00 - Abnormal Lab Findings Abnormal Lab Findings: Abnormal Lab Results 05/28/20 05/28/20 05/28/20 Range/Units 12:20 12:20 12:20 RBC (4.7-6.0) M/mm3 Hgb (13.5-18.0) gm/dL Hct (42.0-52.0) % MCV (78-100) fl MCH (27-31) pg Plt Count (150-450) K/mm3 Lymphocytes % (20-51) % Monocytes % (0.0-9) % Lymphocytes # (1.5-3.5) k/mm3 PT 19.0 H (9.1-10.7) Seconds INR (Anticoag Therapy) 1.97 H (0.92-1.08) INR PTT ([place]) 38.0 H (24-32) Seconds Sodium 117 L* D (132-142) mmol/L Plasma Sodium 117 L* (130-142) mmol/L Potassium 2.9 L (3.4-4.6) mmol/L Chloride 84 L (97-106) mmol/L Carbon Dioxide 23.6 L (24-32.6) mmol/L BUN/Creatinine Ratio (9.0-21.6) Random Glucose 125 H (70-110) mg/dL TIBC (260-445) mcg/dL Transferrin % Sat (15-55) % Ferritin (26-388) ng/mL Total Bilirubin 17.2 H (0.0-1.1) mg/dL Direct Bilirubin 11.7 H (0.0-0.3) mg/dL AST 194 H (0-48) U/L ALT 84 H (19-67) U/L Total Protein 8.9 H (6.2-8.2) gm/dL Albumin 1.8 L (3.4-5.0) gm/dl Urine Protein (NEGATIVE) mg/dL Urine Glucose (UA) (NEGATIVE) mg/dL Urine Blood (NEGATIVE) /ul Urine Nitrate (NEGATIVE) Urine Bilirubin (NEGATIVE) mg/dl Urine Ictotest (NEGATIVE) Prot Sulfosalicylic Acd (0) mg/dL Urine Urobilinogen (NORMAL) EU/dl Urine WBC (0-5) /hpf Urine Bacteria (NONE) 05/28/20 05/28/20 05/28/20 Range/Units 12:20 12:20 14:17 RBC (4.7-6.0) M/mm3 Hgb (13.5-18.0) gm/dL Hct (42.0-52.0) % MCV (78-100) fl MCH (27-31) pg Plt Count (150-450) K/mm3 Lymphocytes % (20-51) % Monocytes % (0.0-9) % Lymphocytes # (1.5-3.5) k/mm3 PT (9.1-10.7) Seconds INR (Anticoag Therapy) (0.92-1.08) INR PTT ([place]) (24-32) Seconds Sodium (132-142) mmol/L Plasma Sodium (130-142) mmol/L Potassium (3.4-4.6) mmol/L Chloride (97-106) mmol/L Carbon Dioxide (24-32.6) mmol/L BUN/Creatinine Ratio (9.0-21.6) Random Glucose (70-110) mg/dL TIBC 114 L (260-445) mcg/dL Transferrin % Sat 96 H (15-55) % Ferritin 1728 H (26-388) ng/mL Total Bilirubin (0.0-1.1) mg/dL Direct Bilirubin (0.0-0.3) mg/dL AST (0-48) U/L ALT (19-67) U/L Total Protein (6.2-8.2) gm/dL Albumin (3.4-5.0) gm/dl Urine Protein 30 H (NEGATIVE) mg/dL Urine Glucose (UA) 100 H (NEGATIVE) mg/dL Urine Blood 5 H (NEGATIVE) /ul Urine Nitrate Positive H (NEGATIVE) Urine Bilirubin 6 H (NEGATIVE) mg/dl Urine Ictotest Positive H (NEGATIVE) Prot Sulfosalicylic Acd 2+ H (0) mg/dL Urine Urobilinogen >=8.0 H (NORMAL) EU/dl Urine WBC 5-10 H (0-5) /hpf Urine Bacteria 1+ H (NONE) 05/28/20 05/29/20 05/29/20 Range/Units 18:20 06:00 06:28 RBC 3.04 L (4.7-6.0) M/mm3 Hgb 10.9 L (13.5-18.0) gm/dL Hct 30.6 L (42.0-52.0) % MCV 100.7 H (78-100) fl MCH 35.9 H (27-31) pg Plt Count 103 L (150-450) K/mm3 Lymphocytes % 13.6 L (20-51) % Monocytes % 11.4 H (0.0-9) % Lymphocytes # 0.74 L (1.5-3.5) k/mm3 PT 19.0 H (9.1-10.7) Seconds INR (Anticoag Therapy) 1.97 H (0.92-1.08) INR PTT ([place]) (24-32) Seconds Sodium 120 L (132-142) mmol/L Plasma Sodium 120 L (130-142) mmol/L Potassium 3.2 L (3.4-4.6) mmol/L Chloride 86 L (97-106) mmol/L Carbon Dioxide (24-32.6) mmol/L BUN/Creatinine Ratio 8.9 L (9.0-21.6) Random Glucose 127 H (70-110) mg/dL TIBC (260-445) mcg/dL Transferrin % Sat (15-55) % Ferritin (26-388) ng/mL Total Bilirubin (0.0-1.1) mg/dL Direct Bilirubin (0.0-0.3) mg/dL AST (0-48) U/L ALT (19-67) U/L Total Protein (6.2-8.2) gm/dL Albumin (3.4-5.0) gm/dl Urine Protein (NEGATIVE) mg/dL Urine Glucose (UA) (NEGATIVE) mg/dL Urine Blood (NEGATIVE) /ul Urine Nitrate (NEGATIVE) Urine Bilirubin (NEGATIVE) mg/dl Urine Ictotest (NEGATIVE) Prot Sulfosalicylic Acd (0) mg/dL Urine Urobilinogen (NORMAL) EU/dl Urine WBC (0-5) /hpf Urine Bacteria (NONE) 05/29/20 Range/Units 06:28 RBC (4.7-6.0) M/mm3 Hgb (13.5-18.0) gm/dL Hct (42.0-52.0) % MCV (78-100) fl MCH (27-31) pg Plt Count (150-450) K/mm3 Lymphocytes % (20-51) % Monocytes % (0.0-9) % Lymphocytes # (1.5-3.5) k/mm3 PT (9.1-10.7) Seconds INR (Anticoag Therapy) (0.92-1.08) INR PTT ([place]) (24-32) Seconds Sodium 122 L (132-142) mmol/L Plasma Sodium 122 L (130-142) mmol/L Potassium 2.8 L (3.4-4.6) mmol/L Chloride 87 L (97-106) mmol/L Carbon Dioxide (24-32.6) mmol/L BUN/Creatinine Ratio (9.0-21.6) Random Glucose (70-110) mg/dL TIBC (260-445) mcg/dL Transferrin % Sat (15-55) % Ferritin (26-388) ng/mL Total Bilirubin 14.0 H (0.0-1.1) mg/dL Direct Bilirubin (0.0-0.3) mg/dL AST 148 H (0-48) U/L ALT (19-67) U/L Total Protein (6.2-8.2) gm/dL Albumin 1.5 L (3.4-5.0) gm/dl Urine Protein (NEGATIVE) mg/dL Urine Glucose (UA) (NEGATIVE) mg/dL Urine Blood (NEGATIVE) /ul Urine Nitrate (NEGATIVE) Urine Bilirubin (NEGATIVE) mg/dl Urine Ictotest (NEGATIVE) Prot Sulfosalicylic Acd (0) mg/dL Urine Urobilinogen (NORMAL) EU/dl Urine WBC (0-5) /hpf Urine Bacteria (NONE) - Exam Constitutional: Present: Alert, Oriented x3, Cooperative, Well developed ENT Exam: Present: normal ENT inspection, hearing grossly normal Neck: Present: normal inspection. Absent: lymphadenopathy (R), lymphadenopathy (L), thyromegaly Breasts: Present: Other - male Respiratory: Present: lungs clear, no respiratory distress Cardiovascular/Chest: Present: regular rate, rhythm, no gallop, no JVD, no murmur, edema - slight in both legs Abdomen: Present: Normal bowel sounds, soft, nontender, no hepatospenomegaly, no masses, distended /Rectal: Present: Exam deferred Extremity: Present: normal range of motion, non-tender Skin Exam: Present: warm/dry, no cyanosis, jaundice Lymphatic: Present: no adenopathy Neurologic: Present: normal mood/affect Appearance: Present: appropriate appearance, appropriate insight, neat Eye contact: Present: cooperative, good eye contact Assessment/Plan Plan Narrative: waiting on transfer to the [facility] will give vitamin K today and see if INR tomorrow is low enough for paracentesis. - Problems/Diagnosis (1) Alcoholic cirrhosis of liver with ascites Problem: Chronic (2) Alcohol dependence Problem: Chronic Qualifiers: (3) Splenomegaly Problem: Chronic (4) Elevated INR Problem: Chronic Narrative: will give oral vitamin K today and check tomorrow. (5) Jaundice Problem: Chronic (6) Hypoalbuminemia Problem: Chronic Narrative: continue healthy diet. (7) Hyponatremia Problem: Acute Narrative: continue low dose IV saline and follow labs. (8) Hypokalemia Problem: Acute Narrative: oral potassium and follow labs.
[2020-05-29] MEDS ORDERED: PHYTONADIONE (VIT K1) 5 MG TABLET PO ONE (13:30)
[2020-05-29] MEDS: oxyCODONE HCL 5 MG TABLET PO PRN (16:42)
[2020-05-30] MEDS: oxyCODONE HCL 5 MG TABLET PO PRN ×2 (03:05→17:25)
[2020-05-30 06:41] LABS: Hematocrit 29.8 % (42.0-52.0); Hemoglobin 10.7 gm/dL (13.5-18.0); Mean Cell Volume 100.7 fl (78-100); Mean Corpuscular Hemoglobin 36.1 pg (27-31); Mean Corpuscular Hgb Conc 35.9 g/dl (32-36); Mean Platelet Volume 9.9 fl (8-11.3); Neutrophil # 4.1 K/mm3 (1.3-6.0); Neutrophil % 70.3 % (42-75.0); Red Blood Count 2.96 M/mm3 (4.7-6.0); Red Cell Distribution Width 14.2 % (11.5-14.0); White Blood Count 5.9 K/mm3 (4.0-10.5)
[2020-05-30 06:45] LABS: Platelet Count 96 K/mm3 (150-450)
[2020-05-30 06:49] LABS: Albumin * 1.5 gm/dl (3.4-5.0); Anion Gap 10.4 mmol/L (6.8-13.8); BUN/Creatinine Ratio 11.9 (9.0-21.6); Bilirubin, Total 13.6 mg/dL (0.0-1.1); Ca. Corrected For Albumin 9.9 mg/dL (8.4-10.2); Calcium * 8.2 mg/dL (7.9-10.9); Potassium 4.4 mmol/L (3.4-4.6); Total Protein 7.4 gm/dL (6.2-8.2)
[2020-05-30 06:55] LABS: Prothrombin Time (Patient) 18.3 Seconds (9.1-10.7)
[2020-05-30 06:57] LABS: INR 1.89 INR (0.92-1.08)
[2020-05-30] MEDS ORDERED: PHYTONADIONE (VIT K1) 5 MG TABLET PO ONE ×2 (07:02→18:00)
--- NOTE | 2020-05-30 07:05 | PN ---
Subjective - Date and Time Seen Date: 05/30/20 Time: 06:30 Subjective Narrative: This is a 60 y/o man who had noticed progressively increasing abdominal swelling for about 3 weeks. He abdominal discomfort has responded well to oxycodone. LLQ bothers him the most, improved by rolling onto his right side. We have avoided acetaminophen and NSAIDs because of his cirrohsis. There have still been no fever, chills or sweats. His urine remains dark. His musculoskeletal cramps have improved. He came to our ER 2 days ago where among other things, he was found to have a bilirubin of 17.2, a low sodium, a low potassium, low albumin, somewhat elevated INR and mild anemia. His physical exam still shows jaundice and moderate ascites. His breath is unpleasant. He is in no acute distress. His vitals are stable. His sodium, bilirubin and hgb are stable. His platelet count is decreasing, related to his cirrhosis. we will continue to monitor. His potassium is normal. we will decrease his oral dose. His INR is a little better, but not low enough today to do paracentesis. We will give Vit K again today and recheck tomorrow. His sodium remains low in spite of fluid restriction, so we will add low dose 3% NaCl and monitor. In the ER, CT of the abdomen showed ascites, plus cirrhosis of the liver and a large spleen. His appetite has improved, but still not great His MELD score on admission was 31 (3 year mortality 50%). [place] still has no bed for him, and their waiting list is large. Objective - Review of Systems Generalized/Overall Review: Reports: [place] EENTM: Reports: No Symptoms Reported Respiratory: Reports: No Symptoms Reported Cardiac: Reports: No Symptoms Reported Abdominal: Reports: Abdominal Pain. Denies: Nausea, Constipation, Diarrhea Genitourinary Symptoms: Reports: No Symptoms Reported, Other - dark urine Musculoskeletal Complaints: Reports: Other - muscle cramps better Neurological: Reports: No Symptoms Reported Skin: Reports: Change in Color Endocrine: Reports: No Symptoms Reported Misc: All systems neg except as marked - Vitals Vitals: Last Vital Signs Temp 36.2 C 05/30/20 06:47 Pulse 82 05/30/20 06:47 Resp 18 05/30/20 06:47 BP 129/87 05/30/20 06:47 Pulse Ox 98 05/30/20 06:47 - Abnormal Lab Findings Abnormal Lab Findings: Abnormal Lab Results 05/29/20 05/30/20 05/30/20 Range/Units 06:00 06:20 06:20 RBC 2.96 L (4.7-6.0) M/mm3 Hgb 10.7 L (13.5-18.0) gm/dL Hct 29.8 L (42.0-52.0) % MCV 100.7 H (78-100) fl MCH 36.1 H (27-31) pg RDW 14.2 H (11.5-14.0) % Plt Count 96 L (150-450) K/mm3 Lymphocytes % 14.8 L (20-51) % Monocytes % 11.2 H (0.0-9) % Lymphocytes # 0.87 L (1.5-3.5) k/mm3 PT 19.0 H 18.3 H (9.1-10.7) Seconds INR (Anticoag Therapy) 1.97 H 1.89 H (0.92-1.08) INR Sodium (132-142) mmol/L Plasma Sodium (130-142) mmol/L Chloride (97-106) mmol/L Total Bilirubin (0.0-1.1) mg/dL AST (0-48) U/L Albumin (3.4-5.0) gm/dl 05/30/20 Range/Units 06:20 RBC (4.7-6.0) M/mm3 Hgb (13.5-18.0) gm/dL Hct (42.0-52.0) % MCV (78-100) fl MCH (27-31) pg RDW (11.5-14.0) % Plt Count (150-450) K/mm3 Lymphocytes % (20-51) % Monocytes % (0.0-9) % Lymphocytes # (1.5-3.5) k/mm3 PT (9.1-10.7) Seconds INR (Anticoag Therapy) (0.92-1.08) INR Sodium 121 L (132-142) mmol/L Plasma Sodium 121 L (130-142) mmol/L Chloride 89 L (97-106) mmol/L Total Bilirubin 13.6 H (0.0-1.1) mg/dL AST 163 H (0-48) U/L Albumin 1.5 L (3.4-5.0) gm/dl - Exam Constitutional: Present: Alert, Oriented x3, Cooperative, Well developed, No distress ENT Exam: Present: normal ENT inspection, hearing grossly normal Neck: Present: normal inspection. Absent: lymphadenopathy (R), lymphadenopathy (L), thyromegaly Breasts: Present: Other - male Respiratory: Present: lungs clear, no respiratory distress Cardiovascular/Chest: Present: regular rate, rhythm, no edema - peripheral edema resolved, no gallop, no JVD, no murmur Abdomen: Present: Normal bowel sounds, soft, nontender, no hepatospenomegaly, no masses, distended /Rectal: Present: Exam deferred Extremity: Present: normal range of motion, non-tender, normal inspection Skin Exam: Present: warm/dry, jaundice Lymphatic: Present: no adenopathy Neurologic: Present: normal mood/affect. Absent: motor weakness Appearance: Present: appropriate appearance, appropriate insight, neat, no memory impairment Eye contact: Present: cooperative, good eye contact, normal speech Thoughts: Present: normal thought pattern Assessment/Plan Plan Narrative: waiting for INR to improve enough for paracentesis. waiting for a bed in [place]. - Problems/Diagnosis (1) Alcoholic cirrhosis of liver with ascites Problem: Chronic (2) Thrombocytopenia Problem: Acute Narrative: due to cirrhosis. will monitor. (3) Elevated INR Problem: Chronic Narrative: vitamin K again today. repeat tomorrow. (4) Jaundice Problem: Chronic Narrative: will monitor. appears relatively stable now. (5) Hyponatremia Problem: Acute Narrative: still low. not improving. will add low dose sodium chloride 3% and monitor. (6) Hypokalemia Problem: Resolved Narrative: will adjust potassium dose. (7) Hypoalbuminemia Problem: Chronic Narrative: will support with good diet. (8) Splenomegaly Problem: Chronic (9) Alcohol dependence Problem: Chronic Qualifiers:
[2020-05-30] MEDS ORDERED: SODIUM CHLORIDE 3 % 500 ML IV SCH (07:15)
[2020-05-30] MEDS: PANTOPRAZOLE SODIUM 40 MG TABLET.EC PO SCH (07:32)
[2020-05-30] MEDS: NORMAL SALINE 1,000 ML IV PRN (07:40)
[2020-05-30] MEDS: POTASSIUM CHLORIDE 20 MEQ TABLET.SA PO SCH (09:56)
[2020-05-30] MEDS: VITAMIN B COMP W-C 1 TAB TABLET PO SCH (09:56)
[2020-05-30] MEDS: MULTIVITAMINS 1 CAP CAPSULE PO SCH (09:57)
[2020-05-30] MEDS: THIAMINE HCL 100 MG TABLET PO SCH (09:57)
[2020-05-30 17:41] LABS: Hepatitis C Antibody NON-REACTIVE (NON-REACTIVE); Hepatitis Panel Confirmation DNR
[2020-05-30] MEDS: SODIUM CHLORIDE 3 % 500 ML IV SCH (18:32)
[2020-05-31 00:54] LABS: Hepatitis B Surface Antigen NON-REACTIVE (NON-REACTIVE)
[2020-05-31] MEDS: PANTOPRAZOLE SODIUM 40 MG TABLET.EC PO SCH (06:41)
[2020-05-31] MEDS: oxyCODONE HCL 5 MG TABLET PO PRN (06:44)
[2020-05-31 06:54] LABS: Hematocrit 27.6 % (42.0-52.0); Hemoglobin 9.8 gm/dL (13.5-18.0); Mean Cell Volume 102.2 fl (78-100); Mean Corpuscular Hemoglobin 36.3 pg (27-31); Mean Corpuscular Hgb Conc 35.5 g/dl (32-36); Mean Platelet Volume 9.9 fl (8-11.3); Neutrophil # 3.4 K/mm3 (1.3-6.0); Neutrophil % 65.1 % (42-75.0); Red Cell Distribution Width 14.1 % (11.5-14.0); White Blood Count 5.3 K/mm3 (4.0-10.5)
[2020-05-31 06:58] LABS: Platelet Count 96 K/mm3 (150-450)
[2020-05-31 07:05] LABS: Prothrombin Time (Patient) 17.6 Seconds (9.1-10.7)
[2020-05-31 07:06] LABS: INR 1.82 INR (0.92-1.08)
--- NOTE | 2020-05-31 07:08 | PN ---
Subjective - Date and Time Seen Date: 05/31/20 Time: 06:30 Subjective Narrative: This is a 60 y/o man who had noticed progressively increasing abdominal swelling for about 3 weeks. He abdominal discomfort has responded well to oxycodone. LLQ bothered him the most, improved by rolling onto his right side. We have avoided acetaminophen and NSAIDs because of his cirrohsis. There have still been no fever, chills or sweats. His urine remains dark. His musculoskeletal cramps have improved. He came to our ER 3 days ago where among other things, he was found to have a bilirubin of 17.2, a low sodium, a low potassium, low albumin, somewhat elevated INR and mild anemia. His physical exam still shows jaundice and moderate ascites. His breath is unpleasant. He is in no acute distress. His vitals are stable. This morning's labs are not yet available. INR yesterday was still not low enough for paracentesis. His sodium had remained low in spite of fluid restriction, so we added low dose 3% NaCl IV. Yesterday we increased the flow rate. Labs from this morning are pending. He developed thrombocytopenia which is worsening, thought to be related to his cirrhosis. In the ER, CT of the abdomen showed ascites, plus cirrhosis of the liver and a large spleen. His appetite is now good and he is able to walk to the bathroom. His MELD score on admission was 31 (3 year mortality 50%). [facility] still has no bed for him. Yesterday we tried transfer to [place]. They accepted him for transfer, but they also had no better. We are still waiting for a bed to open, then we plan transfer. He is still getting IV saline and we continue to monitor labs. Objective - Review of Systems Generalized/Overall Review: Reports: No Symptoms Reported EENTM: Reports: No Symptoms Reported Respiratory: Reports: No Symptoms Reported Cardiac: Reports: No Symptoms Reported Abdominal: Reports: Abdominal Pain. Denies: Nausea, Constipation, Diarrhea Genitourinary Symptoms: Reports: No Symptoms Reported, Other - dark urine Musculoskeletal Complaints: Reports: No Symptoms Reported Neurological: Reports: No Symptoms Reported Skin: Reports: Change in Color Endocrine: Reports: Intolerance to Cold, Intolerance to Heat - Vitals Vitals: Last Vital Signs Temp 36.5 C 05/31/20 06:50 Pulse 80 05/31/20 06:50 Resp 12 05/31/20 06:50 BP 115/78 05/31/20 06:50 Pulse Ox 98 05/31/20 06:50 - Abnormal Lab Findings Abnormal Lab Findings: Abnormal Lab Results 05/30/20 05/30/20 05/30/20 Range/Units 06:20 12:11 16:26 PT 18.3 H (9.1-10.7) Seconds INR (Anticoag Therapy) 1.89 H (0.92-1.08) INR Sodium 122 L 122 L (132-142) mmol/L - Exam Constitutional: Present: Alert, Oriented x3, Cooperative, Well developed, No distress ENT Exam: Present: normal ENT inspection, hearing grossly normal Neck: Present: normal inspection. Absent: lymphadenopathy (R), lymphadenopathy (L), thyromegaly Breasts: Present: Other - male Respiratory: Present: normal breath sounds, no respiratory distress Cardiovascular/Chest: Present: normal peripheral pulses, regular rate, rhythm, no edema, no gallop, no JVD, no murmur Abdomen: Present: Normal bowel sounds, soft, nontender, no masses, distended /Rectal: Present: Exam deferred Extremity: Present: normal inspection, normal capillary refill Skin Exam: Present: warm/dry, no cyanosis, jaundice Lymphatic: Present: no adenopathy Neurologic: Present: normal mood/affect. Absent: abnormal gait Appearance: Present: appropriate appearance, appropriate insight, neat, no memory impairment Eye contact: Present: cooperative, good eye contact, normal speech Thoughts: Present: normal thought pattern Assessment/Plan - Problems/Diagnosis (1) Alcoholic cirrhosis of liver with ascites Problem: Chronic Narrative: waiting for INR to become low enough for paracentesis. waiting to transfer to a hospital with a instructor creeler. (2) Alcohol dependence Problem: Chronic Qualifiers: (3) Splenomegaly Problem: Chronic (4) Elevated INR Problem: Chronic Narrative: had vitamin K twice yesterday (5) Jaundice Problem: Chronic (6) Hypoalbuminemia Problem: Chronic Narrative: continue to support with adequate dietary protein (7) Hyponatremia Problem: Acute Narrative: on 3% saline. monitoring. (8) Hypokalemia Problem: Resolved (9) Thrombocytopenia Problem: Acute Narrative: will continue to monitor CBCs
[2020-05-31 07:15] LABS: Albumin * 1.4 gm/dl (3.4-5.0); Anion Gap 7.6 mmol/L (6.8-13.8); BUN/Creatinine Ratio 10.3 (9.0-21.6); Calcium * 8.2 mg/dL (7.9-10.9); Carbon Dioxide 28.8 mmol/L (24-32.6); Potassium 3.4 mmol/L (3.4-4.6); Total Protein 6.8 gm/dL (6.2-8.2)
[2020-05-31] MEDS: THIAMINE HCL 100 MG TABLET PO SCH (09:19)
[2020-05-31] MEDS: POTASSIUM CHLORIDE 20 MEQ TABLET.SA PO SCH (09:19)
[2020-05-31] MEDS: MULTIVITAMINS 1 CAP CAPSULE PO SCH (09:19)
[2020-05-31] MEDS: VITAMIN B COMP W-C 1 TAB TABLET PO SCH (09:19)
[2020-05-31] MEDS: PHYTONADIONE (VIT K1) 5 MG TABLET PO SCH ×3 (09:20→17:19)
[2020-05-31] MEDS: SODIUM CHLORIDE 3 % 500 ML IV SCH (21:29)
[2020-05-31 23:52] VITALS: BP 124/87
--- NOTE | 2020-06-04 07:13 | DS ---
Transfer Discharge Summary - Diagnosis(s)/Problems (1) Alcoholic cirrhosis of liver with ascites Problem: Chronic (2) Alcohol dependence Problem: Chronic (3) Splenomegaly Problem: Chronic (4) Elevated INR Problem: Chronic (5) Jaundice Problem: Chronic (6) Hypoalbuminemia Problem: Chronic (7) Hyponatremia Problem: Acute (8) Hypokalemia Problem: Resolved (9) Thrombocytopenia Problem: Acute - Course Description of Stay: This is a 60 y/o man who had noticed progressively increasing abdominal swelling for about 3 weeks. He abdominal discomfort has responded well to oxycodone. LLQ bothers him the most, improved by rolling onto his right side. We have avoided acetaminophen and NSAIDs because of his cirrhosis. There have still been no fever, chills or sweats. His urine remains dark. His musculoskeletal cramps have improved. He came to our ER where among other things, he was found to have a bilirubin of 17.2, a low sodium, a low potassium, low albumin, somewhat elevated INR and mild anemia. His MELD score was 31. His physical exam still shows jaundice and moderate ascites. His breath is unpleasant. He is in no acute distress. His vitals are stable. His sodium, bilirubin and hgb are stable. His platelet count is decreasing, related to his cirrhosis. we will continue to monitor. His potassium is normal. we will decrease his oral dose. His INR has improved with oral vit K, but not low enough to do paracentesis. His sodium remained low in spite of fluid restriction, so we will add low dose 3% NaCl and monitor. In the ER, CT of the abdomen showed ascites, plus cirrhosis of the liver and a large spleen. His appetite has improved, but still not great His transfer was pending finding an open bed with access to a filler picker. That did not occur until the evening of 05/31/20 when transfer to [place] was arranged via the doctor communication skills instructor for me. Consultation Done:: Bill by phone on day of admit Procedures Performed: none - Medications Medications: Active Medications Discontinued Medications Sodium Chloride (Sodium Chloride 0.9%) 1,000 mls @ 999 mls/hr IV .Q1H1M PRN PRN Reason: HYDRATION Stop: 06/27/20 13:12 Last Infusion: 05/28/20 16:53 Dose: Infused Documented by: Potassium Chloride/Water (Kcl 10 Meq/100 Ml Piggyback) 100 mls @ 100 mls/hr IV ONCE ONE Stop: 05/28/20 15:58 Last Infusion: 05/28/20 16:12 Dose: Infused Documented by: Sodium Chloride (Sodium Chloride 0.9%) 1,000 mls @ 20 mls/hr IV .Q24H PRN PRN Reason: HYDRATION Stop: 06/27/20 17:06 Last Admin: 05/30/20 07:40 Dose: 20 mls/hr Documented by: Potassium Chloride/Water (Kcl 10 Meq/100 Ml Piggyback) 100 mls @ 100 mls/hr IV TID ONE Stop: 05/28/20 18:05 Last Infusion: 05/28/20 18:44 Dose: Infused Documented by: Sodium Chloride (Hypertonic) (Sodium Chloride 3%) 500 mls @ 5 mls/hr IV .Q24H LISBETH Stop: 06/29/20 07:16 Last Infusion: 05/30/20 18:31 Dose: 0 mls/hr Documented by: Sodium Chloride (Hypertonic) (Sodium Chloride 3%) 500 mls @ 10 mls/hr IV .Q24H LISBETH Stop: 06/29/20 17:59 Last Admin: 05/31/20 21:29 Dose: 10 mls/hr Documented by: Multivitamins/Folic Acid (Multivitamin Josy) 1 cap PO DAILY LISBETH Stop: 06/29/20 09:01 Last Admin: 05/31/20 09:19 Dose: 1 cap Documented by: Oxycodone HCl (Oxycodone) 5 mg PO TID PRN PRN Reason: Pain Stop: 06/28/20 16:01 Last Admin: 05/31/20 06:44 Dose: 5 mg Documented by: Pantoprazole Sodium (Protonix) 40 mg PO DAILY@0700 LISBETH Stop: 06/28/20 07:01 Last Admin: 05/31/20 06:41 Dose: 40 mg Documented by: Phytonadione (Vitamin K) 5 mg PO ONCE ONE Stop: 05/29/20 13:31 Last Admin: 05/29/20 13:37 Dose: 5 mg Documented by: Phytonadione (Vitamin K) 5 mg PO ONCE ONE Stop: 05/30/20 07:03 Last Admin: 05/30/20 07:32 Dose: 5 mg Documented by: Phytonadione (Vitamin K) 5 mg PO ONCE ONE Stop: 05/30/20 18:01 Last Admin: 05/30/20 17:25 Dose: 5 mg Documented by: Phytonadione (Vitamin K) 5 mg PO TID LISBETH Stop: 06/30/20 09:01 Last Admin: 05/31/20 17:19 Dose: 5 mg Documented by: Potassium Chloride (K-Dur) 20 meq PO BID LISBETH Stop: 06/28/20 09:01 Last Admin: 05/29/20 20:45 Dose: 20 meq Documented by: Potassium Chloride (K-Dur) 20 meq PO DAILY LISBETH Stop: 06/29/20 09:01 Last Admin: 05/31/20 09:19 Dose: 20 meq Documented by: Thiamine HCl (Vitamin B-1) 100 mg PO DAILY LISBETH Stop: 06/29/20 09:01 Last Admin: 05/31/20 09:19 Dose: 100 mg Documented by: Vitamin B Complex/Vitamin C (Vitabee W/C) 1 tab PO DAILY LISBETH Stop: 06/29/20 09:01 Last Admin: 05/31/20 09:19 Dose: 1 tab Documented by: - Disposition Disposition: Short Term Hospital Inpatient Condition: Fair Discharge Date: 05/31/20
== END 2020-05-31 23:50 | disposition short-term general hospital (02) | DRG 433 ==
LOC: ER 11:24 → MS 16:18
PROVIDERS: ADMIT Allergy & Immunology; ATTEND Allergy & Immunology